=== PATIENT | female | born 1970 | race Caucasian/White ===

== ENCOUNTER 2020-03-09 16:36 | Inpatient (IN) ==
[2020-03-09] MEDS ORDERED: Furosemide 40 MG/4 ML VIAL IVP ONE (17:14)
[2020-03-09 17:15] LABS: Basophils # 0.1 K/mcL (0.0-0.2); Basophils % 0.8 %; Eosinophils # 0.3 K/mcL (0.0-0.6); Eosinophils % 3.7 %; Hematocrit 36.6 % (35.3-44.9); Hemoglobin 12.4 g/dL (11.5-15.4); Immature Granulocytes % 0.4 % (0-4); Lymphocytes # 3.1 K/mcL (0.6-4.6); Lymphocytes % 36.2 %; Mean Corpuscular HGB Conc 33.9 g/dL (31.6-35.5); Mean Corpuscular Hemoglobin 30.5 pg (28.0-33.3); Mean Corpuscular Volume 90.1 fL (83.0-100.0); Mean Platelet Volume 9.9 fL (9.4-12.4); Monocytes # 0.5 K/mcL (0.0-1.3); Monocytes % 5.3 %; Neutrophils # 4.5 K/mcL (1.6-8.9); Platelet Count 210 K/mcL (140-400); Red Blood Count 4.06 M/mcL (3.82-4.97); Red Cell Distribution Width 12.8 % (11.5-14.5); Segmented Neutrophils % 53.6 %; White Blood Count 8.4 K/mcL (4.3-11.1)
[2020-03-09] MEDS ORDERED: Vancomycin 1,750 MG in 0.9 % Sodium Chloride 250 ML IVPB STA (17:20)
[2020-03-09 17:40] LABS: Alanine Aminotransferase 21 Units/L (7-52); Albumin 4.1 g/dL (3.5-5.7); Albumin/Globulin Ratio 1.4 (1.1-2.2); Alkaline Phosphatase 82 Units/L (34-104); Aspartate Amino Transferase 18 Units/L (13-39); BUN/Creatinine Ratio 19 (6-26); Bilirubin,Indirect 0.4 mg/dL (0.0-1.0); Bilirubin,Total 0.4 mg/dL (0.3-1.0); Blood Urea Nitrogen 18 mg/dL (6-20); Calcium 9.1 mg/dL (8.6-10.3); Carbon Dioxide 26 mEq/L (23-29); Chloride 106 mEq/L (98-107); Glucose 137 mg/dL (70-105); Osmolality,Calculated 292 (280-300); Potassium 3.7 mEq/L (3.5-5.1); Sodium 139 mEq/L (136-145); Total Protein 7.1 g/dL (6.4-8.9); eGFR For African Americans > 60 (> 60); eGFR For Non-African Americans > 60 (> 60)
[2020-03-09 17:41] LABS: Troponin I < 0.03 ng/mL (< 0.04)
[2020-03-09] MEDS ORDERED: Nitroglycerin 0.4 MG TAB.SUBL SL PRN (17:47)
[2020-03-09] MEDS ORDERED: Acetaminophen 325 MG TABLET PO PRN (17:57)
[2020-03-09] MEDS ORDERED: Ondansetron 4 MG/2 ML VIAL IVP PRN (17:57)
[2020-03-09] MEDS ORDERED: Vancomycin 1,750 MG/517.5 ML IV.SOLN IVPB ONE (18:00)
[2020-03-09] MEDS ORDERED: Nicotine 2 MG GUM BC PRN (18:06)
[2020-03-09] MEDS ORDERED: Perflutren Lipid Microsphere 1.3 ML in 0.9 % Sodium Chloride 8.7 ML IVP PRN (18:36)
[2020-03-09] MEDS: CeFAZolin 2 GM/120 ML BAG IVPB SCH (20:28)
[2020-03-09] MEDS ORDERED: Melatonin 3 MG TABLET PO SCH (21:00)
[2020-03-09] MEDS: Nicotine 21 MG PATCH.TD24 TD SCH (21:01)
[2020-03-09] MEDS: Buprenorphine Hcl/Naloxone Hcl [Suboxone 8 Mg-2 Mg S SL SCH (21:02)
[2020-03-09] MEDS: NALOXONE HCL SL SCH (21:02)
[2020-03-09] MEDS: BUPRENORPHINE HCL SL SCH (21:02)
[2020-03-09] MEDS: lisinopriL 20 MG TABLET PO SCH (21:02)
[2020-03-09] MEDS: Gabapentin 400 MG CAPSULE PO SCH (21:02)
[2020-03-09] MEDS: levETIRAcetam 250 MG TABLET PO SCH (21:02)
[2020-03-09] MEDS: Ipratropium/Albuterol Neb 3 ML IH SCH (21:47)
[2020-03-10] MEDS: Ipratropium/Albuterol Neb 3 ML IH SCH ×3 (03:37→15:56)
[2020-03-10 03:53] LABS: Hematocrit 39.8 % (35.3-44.9); Hemoglobin 13.1 g/dL (11.5-15.4); Mean Corpuscular HGB Conc 32.9 g/dL (31.6-35.5); Mean Corpuscular Hemoglobin 30.1 pg (28.0-33.3); Mean Corpuscular Volume 91.5 fL (83.0-100.0); Platelet Count 215 K/mcL (140-400); Red Blood Count 4.35 M/mcL (3.82-4.97); Red Cell Distribution Width 12.8 % (11.5-14.5); White Blood Count 7.6 K/mcL (4.3-11.1)
[2020-03-10 04:06] LABS: BUN/Creatinine Ratio 19 (6-26); Blood Urea Nitrogen 18 mg/dL (6-20); Calcium 9.2 mg/dL (8.6-10.3); Carbon Dioxide 30 mEq/L (23-29); Chloride 105 mEq/L (98-107); Glucose 74 mg/dL (70-105); Magnesium 1.8 mg/dL (1.6-2.6); Osmolality,Calculated 293 (280-300); Phosphorous 4.1 mg/dL (2.7-4.5); Potassium 3.7 mEq/L (3.5-5.1); Sodium 141 mEq/L (136-145); Troponin I < 0.03 ng/mL (< 0.04); eGFR For African Americans > 60 (> 60); eGFR For Non-African Americans > 60 (> 60)
[2020-03-10] MEDS: CeFAZolin 2 GM/120 ML BAG IVPB SCH ×3 (04:34→11:43)
[2020-03-10] MEDS ORDERED: *HR* Enoxaparin 40 MG/0.4 ML SYRINGE SQ SCH (06:00)
[2020-03-10] MEDS: Gabapentin 400 MG CAPSULE PO SCH ×2 (07:33→15:17)
[2020-03-10] MEDS: Nicotine 21 MG PATCH.TD24 TD SCH (07:33)
[2020-03-10] MEDS: levETIRAcetam 250 MG TABLET PO SCH (07:33)
[2020-03-10] MEDS: lisinopriL 20 MG TABLET PO SCH (07:34)
[2020-03-10] MEDS: Buprenorphine Hcl/Naloxone Hcl [Suboxone 8 Mg-2 Mg S SL SCH (07:35)
[2020-03-10] MEDS: NALOXONE HCL SL SCH (07:35)
[2020-03-10] MEDS: BUPRENORPHINE HCL SL SCH (07:35)
[2020-03-10] MEDS ORDERED: Furosemide 40 MG/4 ML VIAL IVP SCH (08:00)
[2020-03-10 08:59] LABS: Estimated Average Glucose 146 mg/dl
[2020-03-10] MEDS ORDERED: amLODIPine 5 MG TABLET PO SCH (09:00)
[2020-03-10] MEDS ORDERED: *HR* Dextrose 50 % in Water (Vial) 50 ML VIAL IVP PRN (09:02)
[2020-03-10] MEDS ORDERED: D5% in Water 1,000 ML IVC PRN (09:02)
[2020-03-10] MEDS ORDERED: Dextrose Gel 15 GM/37.5 ML TUBE PO PRN ×2 (09:02)
[2020-03-10] MEDS: Insulin LISPRO 300 UNITS/3 ML VIAL SQ SCH ×2 (09:45→11:38)
[2020-03-10] MEDS ORDERED: *HR* Buprenorphine HCl 2 MG SUBLINGUAL TABLET SL SCH (11:15)
[2020-03-10 15:28] VITALS: BP 126/85
[2020-03-10] MEDS ORDERED: Insulin LISPRO 300 UNITS/3 ML VIAL SQ SCH (21:00)
== END 2020-03-10 16:49 | disposition left against medical advice (07) | DRG 383 ==
LOC: EMEROOARM 16:36 → 3BNU 16:36 → SUATTDRO 19:01 → 3BNU 19:46
PROVIDERS: ADMIT Internal Medicine; ATTEND Internal Medicine